=== PATIENT | male | born 1980 | race Caucasian/White ===

== ENCOUNTER 2016-06-16 06:54 | Emergency (ER) | payer OTHER ==
[2016-06-16] MEDS ORDERED: PREDNISONE 20 MG TABLET ONE (07:36)
[2016-06-16] MEDS ORDERED: ACYCLOVIR 200 MG CAPSULE PO ONE (07:45)
[2016-06-16] MEDS ORDERED: ACYCLOVIR 400 MG TABLET PO ONE (07:45)
== END 2016-06-16 07:56 | disposition home or self-care (01) ==
LOC: ED 06:54 → SUPCPDRO 06:54 → ED 07:56
DX: B02.22 Postherpetic trigeminal neuralgia (principal)
CPT/HCPCS: 99283 ×2; J7512; A9270 ×2